=== PATIENT | male | born 1965 | race African-American/Black ===

== ENCOUNTER 2024-10-05 15:03 | Inpatient (IN) | payer OTHER ==
[2024-10-05 15:40] VITALS: BMI 22.7
[2024-10-05] MEDS ORDERED: DICYCLOMINE HCL 10 MG CAPSULE PO PRN (16:18)
[2024-10-05] MEDS ORDERED: IBUPROFEN 400 MG TABLET (FP) PO PRN (16:18)
[2024-10-05] MEDS ORDERED: NALOXONE (NARCAN) HCL 4 MG/0.1 ML SPRAY NS PRN (16:18)
[2024-10-05] MEDS ORDERED: POLYETHYLENE GLYCOL (HEALTHYLAX) 3350 17 GM PACKET PO PRN (16:18)
[2024-10-05] MEDS ORDERED: BISMUTH SUBSALICYLATE 524 MG/30 ML PO PRN (16:18)
[2024-10-05] MEDS ORDERED: ONDANSETRON *ODT* 4 MG TABLET SL PRN (16:18)
[2024-10-05] MEDS ORDERED: BENZONATATE 200 MG CAPSULE PO PRN (16:18)
[2024-10-05] MEDS ORDERED: guaiFENesin 600 MG TABLET.ER (FP) PO PRN (16:18)
[2024-10-05] MEDS ORDERED: LOPERAMIDE HCL 2 MG CAPSULE PO PRN (16:18)
[2024-10-05] MEDS ORDERED: ACETAMINOPHEN 325 MG TABLET (FP) PO PRN (16:18)
[2024-10-05] MEDS ORDERED: BENZOCAINE/MENTHOL (CHLORASEPTIC ) LOZENGE MM PRN (16:18)
[2024-10-05] MEDS ORDERED: MAG HYDROX/AL HYDROX/SIMETH 30 ML UNIT-DOSE CUP PO PRN (16:18)
[2024-10-05] MEDS ORDERED: MAGNESIUM HYDROX 2400MG/30ML ORAL SUSPENSION 30 ML CUP PO PRN (16:18)
[2024-10-05] MEDS ORDERED: NICOTINE POLACRILEX 2 MG GUM BUC PRN (16:18)
[2024-10-05] MEDS: MIRTAZAPINE 15 MG TABLET (FP) PO SCH (22:37)
[2024-10-05] MEDS: MELATONIN 5 MG TABLETS PO SCH (22:37)
[2024-10-05] MEDS: THIAMINE 100 MG TABLET PO SCH (22:37)
[2024-10-06] MEDS: METHOCARBAMOL 500 MG TABLET PO PRN (10:29)
[2024-10-06] MEDS: NICOTINE 14 MG/24 HOURS TOPICAL PATCH TD SCH (10:32)
[2024-10-06] MEDS: PRENATAL VITAMINS W/ FOLIC ACID TABLET (FP) PO SCH (10:36)
[2024-10-06 11:37] LABS: MCHC 31.4 g/dl (32.3-36.5); MEAN CELL VOLUME 92.6 fl (79.0-92.2); MEAN PLT VOLUME 9.5 fl (9.4-12.4); RDW 12.3 % (12.2-16.1)
[2024-10-06 11:54] LABS: CO2 32 mmol/L (21-32); GLUCOSE,RANDOM 88 mg/dL (74-106)
[2024-10-06 11:57] LABS: SGPT/ALT 28 U/L (13-61)
[2024-10-06 11:58] LABS: CREATININE 0.9 mg/dL (0.55-1.3); SGOT/AST 21 U/L (15-37); TOT PROT 5.6 g/dl (6.4-8.2)
[2024-10-06 11:59] LABS: ALK PHOS 69 U/L (45-117)
[2024-10-06] MEDS: MUPIROCIN 2% TOPICAL OINTMENT 22 GM TUBE TP SCH (13:21)
[2024-10-06] MEDS: IBUPROFEN 600 MG TABLET (FP) PO PRN (17:38)
[2024-10-06] MEDS: MELATONIN 5 MG TABLETS PO SCH (22:49)
[2024-10-07] MEDS: hydrOXYzine PAMOATE 25 MG CAPSULE (FP) PO PRN (17:27)
[2024-10-09 12:47] VITALS: RESP 16
[2024-10-10 08:30] VITALS: BP 133/79; PULSE 82; TEMP 98.7
== END 2024-10-10 09:35 | disposition home or self-care (01) | DRG 773 ==
LOC: YASAS 15:03 → Y6N 17:38
PROVIDERS: ADMIT Neuromusculoskeletal Medicine & OMM; ATTEND Counselor Addiction (Substance Use Disorder)
PROC: HZ2ZZZZ Detoxification Services for Substance Abuse Treatment (ICD-10-PCS; principal; 2024-10-05)
DX: F11.23 Opioid dependence with withdrawal (principal); F17.210 Nicotine dependence, cigarettes, uncomplicated; F32.A Depression, unspecified
CPT/HCPCS: 36415; 80053; 80305; 80307; 85027; 86780; 93005; 93010